=== PATIENT | female | born 1970 | race Caucasian/White ===

== ENCOUNTER → 2016-12-08 | Outpatient (CLI) | payer BC ==
[~2016-12-08] MED LIST: PRENTAB26 PO
== END | disposition home or self-care (01) ==
LOC: C.PAPS 16:15
PROVIDERS: ATTEND Obstetrics & Gynecology
DX: Z01.419 Encounter for gynecological examination (general) (routine) without abnormal findings (principal); Z30.09 Encounter for other general counseling and advice on contraception; R87.616 Satisfactory cervical smear but lacking transformation zone; Z87.42 Personal history of other diseases of the female genital tract

== ENCOUNTER → 2017-04-17 | Outpatient (CLI) | payer BC ==
--- NOTE | 2017-04-18 07:36 | MAMMOGRAPHY REPORT ---
BILATERAL DIGITAL DIAGNOSTIC MAMMOGRAM TOMOSYNTHESIS WITH CAD AND TARGETED BILATERAL ULTRASOUND: 04/17 CLINICAL HISTORY: 46-year-old woman presents with a palpable lump in the upper outer quadrant of the right breast which she has noted for 6-8 weeks. No skin erythema or thickening. No nipple discharge . No family history of breast cancer. Her provider also felt a possible additional lump in the 4:00 axis of the left breast, this was recollected by the patient as the 6:00 axis. TECHNIQUE: Bilateral CC and MLO 2-D and tomosynthesis images and a 2-D and tomosynthesis right XCCL v iew was obtained. Current study was also evaluated with a Computer Aided Detection (CAD) system. COMPARISON: Comparison is made to exams dated: 03/24/2016 mammogram, 02/03/2015 mammogram, 07/22/2014 mammogram, 07/22/2014 ultrasound, 12/31/2013 ultrasound, and 12/31/2013 mammogram - [facility]. BREAST COMPOSITION: There are scattered areas of fibroglandular density in both breasts. FINDINGS: A triangular palpable marker overlies the upper outer posterior right breast, denoting the lump pointed out by the patient, and another triangular palpable marker was placed in the 6:00 outreach librarian ior left breast, in the area the patient reported her provider felt a lump. In the area of concern i n the right breast, there is an irregular and spiculated mass with associated architectural distortio n measuring 19 x 18 x 16 mm. This is suspicious and further evaluation with ultrasound was performed . Also in the right breast, there is an 11 mm focal asymmetry in the upper outer middle to posterior breast that has been present on prior mammograms dating back to 2013 but has somewhat angular versus distorted borders on the axial CC L tomosynthesis images. Further evaluation with ultrasound was al so performed. No other obvious mass, asymmetry or suspicious calcifications are seen in the right br east. There is a subtle focal asymmetry in the 12:00 posterior left breast that is increasingly conspicuous comparing to prior mammograms. No obvious associated architectural distortion or calcification. No other suspicious masses, calcifications, asymmetries or areas of distortion are seen in the left scottie ast, with particular attention to the area of concern identified by the patient's provider. Targeted ultrasound was performed in the area of palpable lump pointed out by the patient, within the 9:30 right breast, 11 cm from the nipple. In the area of concern, there is an ill-defined spiculate d, tolerated in white hypoechoic shadowing mass measuring approximately 14.3 x 15.8 x 11.5 mm, with i ncreased vascularity. This is suspicious for malignancy and definitive characterization with an ultr asound-guided core biopsy is recommended. Then additional scanning was performed in the right axilla which demonstrates a lymph node with heterogeneous and undulating cortex. Cortical thickness is wit hin the range of normal at 2.9 mm, but given the heterogeneity this is indeterminate and an ultrasoun d-guided core biopsy is recommended. This lymph node measures 2.6 cm in length. Then additional sca nning performed throughout the remainder of the right upper outer quadrant fails to demonstrate any o ther suspicious solid or cystic mass or a sonographic correlate for the focal asymmetry seen in the l ateral breast mammographically. Targeted ultrasound was performed in the 11:00, 12:00 and 1:00 axes of the left breast to assess for the focal mammographic asymmetry sonographically normal tissue is seen without a suspicious solid or cystic mass. Given the contralateral breast findings and numerous asymmetries was working up, I inad vertently forgot to ultrasound the area of palpable concern in the left breast identified by the natalie ent's provider. Although there is no suspicious mammographic abnormality in the area of concern, I w ill perform targeted ultrasound in this area at the time of the ultrasound-guided core biopsy in the right breast, as the patient has scheduled her biopsy for tomorrow. IMPRESSION: ACR BI-RADS CATEGORY 5: HIGHLY SUGGESTIVE OF MALIGNANCY, TARGETED ULTRASOUND ACR BI-RADS CATEGORY 5: HIGHLY SUGGESTIVE OF MALIGNANCY 1. Ultrasound-guided core biopsy is recommended for a suspicious spiculated 19 mm mass in the 9:30 t o 10:00 posterior right breast. 2. Ultrasound-guided core biopsy is recommended for a lymph node in the right axilla with heterogene ous and undulating cortex, to exclude the possibility of metastatic disease. 3. At the time of right breast biopsy, targeted ultrasound should be performed in the 4:00 through 6 :00 axes of the left breast, in the area of palpable concern identified by the patient's provider. 4. Increasingly conspicuous focal asymmetries in the upper outer middle to posterior aspect of each breast, without suspicious sonographic correlate identified. These findings may represent benign tis rosario, but will issue further follow-up recommendations once pathology results from the right breast bi opsy are available, as a breast MRI may be needed. These results and recommendations were discussed with the patient at the time of the exam. She kassy reza scheduled the right breast and axillary biopsy prior to leaving our department, for 04/18/2017 . Approximately 10% of breast cancers are not detected with mammography. A negative mammographic report should not delay biopsy if a clinically suggestive mass is present. Gloria Ware M.D. ay/:04/17/2017 15:03:12 Test Engineer Nuclear Equipment: Chantelle Moreno, [facility] letter sent: Abnormal 4/5 BI-RADS Code: ACR BI-RADS Category 5: Highly Suggestive Of Malignancy Ultrasound BI-RADS: ACR BI-RAD S Category 5: Highly Suggestive Of Malignancy
== END | disposition home or self-care (01) ==
LOC: C.MAMM 13:03
PROVIDERS: ATTEND Obstetrics & Gynecology
DX: N63.10 Unspecified lump in the right breast, unspecified quadrant (principal); N63.20 Unspecified lump in the left breast, unspecified quadrant; R59.0 Localized enlarged lymph nodes; N64.9 Disorder of breast, unspecified

== ENCOUNTER → 2017-04-18 | Outpatient (CLI) | payer BC ==
--- NOTE | 2017-04-18 15:30 | Discharge Instructions ---
Discharge Instructions Procedure Procedure Date: Apr 18, 2017. Reason for visit: Right Mass/Axillary Node. Discharge Discharge Date: Apr 18, 2017. Discharge Diagnosis: post right breast mass and axillary lymph node biopsy Instructions Activity Recommendations: Additional Limitations (see below) Return to School/Work: no limitations Recommended Home Diet: No Limitations Provider Instructions: ACTIVITY RECOMMENDATIONS: * No lifting, pushing, pulling or exercising the affected side for three days. RETURN TO SCHOOL/WORK: * You may return to work/school after the procedure, but do not perform any strenuous activities for 24 to 48 hours. MEDICATIONS: * Tylenol (two 325 mg) every four to six hours if needed for mild pain (if not allergic to Tylenol). DIET: * Resume previous diet. SPECIAL CARE INSTRUCTIONS: * Keep biopsy site dry for 24 hours. May shower after 24 hours, but do not soak (bathe) incision. * May remove Tegaderm (plastic patch) tomorrow AFTER showering. * Leave the steri-strips on for one week. Allow the steri-strips to fall off by themselves. If not off after one week, you may remove them. You may place a Bandaid crosswise over the strips, if desired. * Apply ice 10 minutes on and 10 minutes off as needed. * Wear a bra at bedtime to sleep more comfortably for 2-3 days. * Your referring physician should have the results after approximately 5 to 7 business days. * Call for unusual bleeding, fever, drainage, etc or if you have any questions call [phone] during normal business hours or after hours call Dr Ware, . FOLLOW UP VISIT: Follow-up with Referring Physician as scheduled. Allergies Coded Allergies: Penicillins (Verified Allergy, Unknown, RASH, 06/18/09) Sulfa Drugs (Verified Allergy, Unknown, SWELLING, 06/18/09) Beatriz Michelle Recommendations: Call your doctor if: * Temperature above 101 degrees * Pain not relieved by pain medicine ordered * There is increased drainage or redness from any incision * You have any unanswered questions or concerns. Your Doctors Instructions noted above were prepared by provider Gloria Ware. Patient Signature Section: Patient Instructions Signature Page Angelica Jaramillo Patient (or Guardian) Signature/Date: I have read and understand the instructions given to me by my caregivers. Caregiver/RN/Doctor Signature/Date: The above-named patient and/or guardian has received patient instructions on this date. + Original Patient Signature Page (only) stays with chart. Please make copy for patient.
--- NOTE | 2017-04-19 07:53 | MAMMOGRAPHY REPORT ---
ULTRASOUND GUIDED BIOPSY RIGHT BREAST: 04/18/2017 CLINICAL HISTORY: Indeterminate prominent right axillary lymph node with heterogeneous undulating cor sherri. Patient presents for lymph node biopsy at the same time as biopsy of a suspicious right breast mass in the upper outer quadrant. Please refer to the report from right breast ultrasound guided core biopsy performed at the same time for full detail. IMPRESSION: ULTRASOUND GUIDED BIOPSY Please refer to the report from right breast ultrasound guided core biopsy performed at the same time for full detail. Gloria Ware M.D. ay/:04/18/2017 15:57:25 Attending Technologist: Chantelle GARDINER(Giovani)(M), [facility] Supervisor Wet Pour: Dr. Gloria Ware, [facility]
--- NOTE | 2017-04-19 07:53 | MAMMOGRAPHY REPORT ---
THIS REPORT HAS BEEN AMENDED. MULTIPLE ULTRASOUND GUIDED BIOPSIES RIGHT BREAST: 04/18/2017 CLINICAL HISTORY: 46-year-old woman presented with a palpable mass in the 9:30 posterior right breast , found to have a suspicious spiculated mass mammographically and on ultrasound, and also indetermina te right axillary lymph node. She presents for biopsy of the breast mass and lymph node. COMPARISON: Comparison is made to exams dated: 04/17/2017 ultrasound, 04/17/2017 mammogram, 03/24/2016 mammogram, 02/03/2015 mammogram, 07/22/2014 mammogram, and 12/31/2013 mammogram - [facility]. PATIENT CONSENT: The procedure, risks and benefits were discussed with the patient and informed conse nt was obtained both verbally and in writing. Specific risks to this procedure include: bleeding, in fection, puncture of adjacent structure, nontarget biopsy, sampling error, pain, metal allergy and me dication reaction. PROCEDURE DESCRIPTION: A time out was performed and the right breast and axillary lymph node were agr eed as the site of biopsy. The skin was prepped and draped in the usual sterile fashion. First, the spiculated palpable mass in the 9:30 right breast was chosen as the target for biopsy. Subcutaneous and intraparenchymal 1% buffered lidocaine, with and without epinephrine, was administered as local a nesthesia. A skin incision was made. Through the incision, 4 samples were taken with a 14 gauge Achi kathrine biopsy device. A ribbon shaped metallic marker was placed at the biopsy site. Hemostasis was achi eved after manual compression. The patient tolerated the procedure well and there was no immediate co mplication. Second, the lymph node with heterogeneous undulating cortex in the right axilla was identified and ta rgeted for biopsy. Additional 1% buffered lidocaine with and without epinephrine was administered. A small skin incision was made. Through the incision, 4 core biopsy samples were obtained with an 18 -gauge Quick-Core biopsy device. A ring-shaped metallic biopsy marker was placed within the lymph no de. All of the samples were sent expedited to the pathology department in an appropriately labeled contai ners. Postprocedure right CC, ML and MLO views were obtained. Both biopsy marker clips are identified on t he right MLO view. Neither are clearly seen on the CC or ML views. The ribbon-shaped clip aligns wi th the spiculated mass in question in the upper outer far posterior right breast, and the wing-shaped clip is seen within a prominent lymph node in the right axilla. No significant postbiopsy hematoma. IMPRESSION: ULTRASOUND GUIDED BIOPSY Status post ultrasound guided core biopsy of a suspicious pixilated palpable mass in the upper outer posterior right breast, and of an indeterminate right axillary lymph node. Biopsy marker clips were placed at each site. The patient will receive notification of the biopsy results from her referring physician. Gloria Ware M.D. ay/:04/18/2017 16:39:31 Attending Technologist: Harley Luo RT(R)(M), [facility] Jewelry Sales: Dr. Gloria Ware, [facility] AMENDMENT: 04/19/2017 Gloria Ware M.D. Pathology results from the ultrasound-guided core biopsy of a suspicious spiculated and palpable mass in the 9:30 right breast yielded invasive lobular carcinoma, [place] grade 1 of 3, estrogen and p rogesterone receptor positive, HER-2/hema negative. Pathology results from the lymph node biopsy in the right axilla yielded a benign-appearing lymph nod e and soft tissue present. The pathology results are concordant with the imaging appearance. Given the presence of invasive lob ular carcinoma, a breast MRI is recommended prior to definitive treatment. In particular, there is a 7 mm focal asymmetry in the upper outer middle one third of the right breast, 5.2 cm anterior to the biopsy proven carcinoma on the initial MLO view. This remain suspicious and could represent additio nal disease even though it was not identified on ultrasound. Additionally with like to assess for an y enhancement regarding the focal asymmetry in the left upper outer quadrant as well.
--- NOTE | 2017-04-19 07:54 | MAMMOGRAPHY REPORT ---
UNILATERAL RIGHT DIGITAL DIAGNOSTIC MAMMOGRAM TOMOSYNTHESIS: 04/18/2017 CLINICAL HISTORY: 46-year-old woman presents for biopsy of a suspicious spiculated and palpable mass in the upper outer posterior right breast, and biopsy of a prominent lymph node in the right axilla w ith undulating heterogeneous cortex. Please refer to the report from right breast ultrasound guided core biopsy performed at the same time for full detail. IMPRESSION: POST PROCEDURE IMAGING FOR MARKER PLACEMENT Please refer to the report from right breast ultrasound guided core biopsy performed at the same time for full detail. Approximately 10% of breast cancers are not detected with mammography. A negative mammographic report should not delay biopsy if a clinically suggestive mass is present. Gloria Ware M.D. ay/:04/18/2017 15:56:21 Labeling Machine Operator: Chantelle GARDINER(Giovani)(M), [facility] BI-RADS Code: Post Procedure Imaging For Marker Placement
== END | disposition home or self-care (01) ==
LOC: C.MAMM 14:01
PROVIDERS: ATTEND Obstetrics & Gynecology
DX: C50.911 Malignant neoplasm of unspecified site of right female breast (principal); R59.9 Enlarged lymph nodes, unspecified

== ENCOUNTER → 2017-05-09 | Outpatient (CLI) | payer BC ==
[~2017-05-09] MED LIST changes: +ANAS1TAB7 PO; +CEPH500C2 PO; +GADAVIST IV PRN; +GOSE3.6I INJ; +HYDR-5688 PO; +HYDR12.56 PO; +LISI-461 PO; +LISI20TA55 PO; +OXYC-57 PO
--- NOTE | 2017-05-10 13:47 | MAMMOGRAPHY REPORT ---
BREAST MRI OF BOTH BREASTS : 05/09/2017 CLINICAL HISTORY: 46-year-old woman with recently diagnosed invasive lobular carcinoma in the 9:30 po sterior right breast. She presents to assess extent of disease prior to treatment, and also evaluate the focal asymmetries identified in each upper outer middle to posterior breast seen on diagnostic m ammograms, without sonographic correlate. Also assess a previously palpable area in the 4:00 to 6:00 left breast, for which no new suspicious mammographic abnormality was identified. COMPARISON: Comparison is made to exams dated: 04/18/2017 mammogram, 04/18/2017 ultrasound biopsy, 04/17/2017 ultrasound, 04/17/2017 mammogram, 03/24/2016 mammogram, and 02/03/2015 mammogram - [facility]. TECHNIQUE: Using a 1.5 Mitali magnet and dedicated breast coil, multisequence axial images were obtain ed through the breasts. After uneventful IV administration of 10 mL of Gadavist, dynamic multiphase contrast-enhanced axial images, and sagittal postcontrast were obtained. Temporal subtraction axial images and 3-D MIP images are provided. Everything was then reviewed on a 3-D workstation, [employer]. FINDINGS: Right breast: There is minimal background parenchymal enhancement of the right breast. There is a co mbination of both mass and non-mass enhancement throughout the right upper outer quadrant. The domin ant, heterogeneously enhancing, spiculated mass with associated biopsy marker clip is located in the 9:30 far posterior right breast, measuring approximately 21.3 x 16.6 x 29.6 mm. There are mixed asso ciated persistent, plateau and washout kinetics. Small enhancing spicules appear to extend to the ad jacent pectoralis muscle but there is no definitive pectoralis muscle enhancement to suggest invasion . The next largest masslike enhancement in the right breast is located in the retroareolar posterior breast, measuring 6.5 x 10.5 x 7.0 mm, with predominantly associated plateau kinetics. This mass bland s angular and irregular borders and is suspicious for additional invasive carcinoma. It corresponds to the focal asymmetry seen mammographically in the right upper outer quadrant and is located at leas t 5 cm anterior and medial to the biopsy-proven carcinoma in the far posterior 9:30 right breast. A third prominent area of non-mass enhancement is identified in the 9:00 middle one third of the right breast measuring 4.2 x 8.3 x 5.8 mm, with associated persistent kinetics. This area of enhancement i s located 5.2 cm anterior to the dominant biopsy-proven carcinoma in the far posterior 9:30 right scottie ast. Subtle regional non-mass enhancement is seen throughout the remainder of the right upper outer quadrant from the approximate 9:00 through 12:00 middle one third and posterior one third of the beat[address] and surrounding the above described largest areas of mass enhancement. These findings are concern ing for multifocal disease and definitive characterization with tissue sampling is recommended of bot h the angular 10.5 mm mass in the retroareolar posterior breast, and the focal area of non-mass enhan cement measuring 8.3 mm in the 9:00 middle one third of the right breast. No other definite areas of mass or non-mass enhancement are seen throughout the remainder of the right upper inner, lower outer or lower inner quadrants. There is no evidence of focal skin thickening or nipple retraction of the right breast. Left breast: There is minimal background parenchymal enhancement of the left breast. There is a mild ly enhancing 4.4 x 7.5 x 14.5 mm focal asymmetry in the 12:00 posterior left breast, correlating with a focal asymmetry seen mammographically, for which no sonographic correlate was initially identified . There is associated mild persistent kinetics. Given that this is the only conspicuous area of enh ancement within the left breast, and the increasingly conspicuous nature seen when comparing to prior mammograms, definitive characterization with tissue sampling is recommended. No focal skin thickeni ng or nipple retraction of the left breast. Bilateral axillary lymph nodes demonstrate minimal homogeneous cortical thickening. Susceptibility a rtifact from a biopsy marker clip is seen within the most prominent right axillary lymph node. It sh ould be noted that this did not yield metastatic carcinoma at pathology. IMPRESSION: ACR BI-RADS CATEGORY 4: SUSPICIOUS 1. Right breast findings concerning for multifocal disease throughout the upper outer quadrant. The re are areas of both mass and regional non-mass enhancement within the middle and posterior one third of the right upper outer breast. The dominant spiculated mass in the 9:30 far posterior right breas t, representing the recent biopsy proven carcinoma, measures approximately 29.6 mm and there is no de finite evidence of pectoralis invasion. Other concerning areas in the middle/posterior retroareolar and 9:00 middle one third of the right breast could represent additional disease and definitive annamaria cterization with targeted second look ultrasound with possible ultrasound-guided core biopsy as well as stereotactic tomosynthesis biopsy are recommended. If the area of non-mass enhancement in the 9:0 0 right breast is not visualized on ultrasound and MRI guided biopsy may be needed. 2. Subtle focal asymmetry with mild associated enhancement in the 12:00 middle to posterior left scottie ast, for which stereotactic tomosynthesis guided biopsy versus MRI guided biopsy is recommended for d efinitive characterization. 3. Mildly prominent yet symmetric bilateral axillary lymph nodes, one of which was previously sample d in the right axilla and yielded no evidence of metastatic disease at needle biopsy. The patient will be called to schedule an appointment. Gloria Ware M.D. ay/:05/09/2017 21:29:25 Informaticist: wide area network administrator, [facility] letter sent: Abnormal 4/5 BI-RADS Code: ACR BI-RADS Category 4: Suspicious
== END | disposition home or self-care (01) ==
LOC: C.MRI 15:09
PROVIDERS: ATTEND Surgery
DX: C50.411 Malignant neoplasm of upper-outer quadrant of right female breast (principal); N64.89 Other specified disorders of breast; R92.8 Other abnormal and inconclusive findings on diagnostic imaging of breast; R59.0 Localized enlarged lymph nodes

== ENCOUNTER → 2017-05-15 | Outpatient (CLI) | payer BC ==
[~2017-05-15] MED LIST changes: -GADAVIST IV PRN; -PRENTAB26 PO
--- NOTE | 2017-05-16 15:01 | MAMMOGRAPHY REPORT ---
ULTRASOUND OF BOTH BREASTS: 05/15/2017 CLINICAL HISTORY: 46-year-old woman with biopsy proven lobular carcinoma in the 9:30 posterior right breast. She presents for second look ultrasound to assess for other enhancing masses in the right br east and a focal asymmetry in the left breast. COMPARISON: Comparison is made to exams dated: 04/18/2017 mammogram, 04/18/2017 ultrasound biopsy, 04/17/2017 ultrasound, 04/17/2017 mammogram, 03/24/2016 mammogram, and 02/03/2015 mammogram - [facility]. FINDINGS: Real-time high-resolution ultrasound was performed in both breasts assess for the other ar eas of masslike and non-mass enhancement seen on recent breast MRI. In the upper outer quadrant and 11:00 left breast, sonographically normal tissue is seen without a discrete solid or cystic mass. No sonographic correlate for the subtle focal asymmetry seen on recent MRI. In the right upper outer quadrant in the 9:00 axis, 5 cm from the nipple, there is a small shadowing area measuring 3.6 x 4.1 x 2.8 mm. Another possible very subtle hypoechoic area versus architectural distortion is identified in the 10:00 right breast, 4 cm from the nipple, measuring 3.0 x 3.8 x 6.9 mm. There is no definite sonographic correlate for the 6 x 9 mm masslike enhancement in the retroare olar right breast seen on recent MRI for the other dominant masslike areas of enhancement. After further discussion regarding the MRI findings and concern for multifocal disease in the right b reast the patient was leaning towards bilateral mastectomies and therefore no biopsies were performed . IMPRESSION: Vague questionable areas of hypoechoic shadowing in the 9:00 and 10:00 axes of the right breast which may correspond to areas of non-mass enhancement seen on recent breast MRI. However, the dominant co ncerning masslike enhancement in the retroareolar right breast was not identified on targeted second look ultrasound, nor was any suspicious abnormality in the left breast. The patient is currently aguilar adam towards bilateral mastectomies and therefore no biopsies were performed today. Gloria Ware M.D. ay/:05/15/2017 14:14:27 Milk Receiver: Tamiko ESCALERA)(Carlos), [facility] BI-RADS Code: n/a
== END | disposition home or self-care (01) ==
LOC: C.MAMM 12:39
PROVIDERS: ATTEND Surgery
DX: R92.8 Other abnormal and inconclusive findings on diagnostic imaging of breast (principal)

== ENCOUNTER 2017-05-21 07:47 | Inpatient (IN) | payer BC ==
[2017-05-09 09:01] VITALS: BMI 39.0
--- NOTE | 2017-05-09 09:34 | PAT Medication Instructions ---
Service Date May 09, 2017. Current Home Medication List Lisinopril (Zestril), 10 MG PO QPM Medication Instructions For Your Scheduled Surgery - Hold the following medications the night before surgery: Lisinopril (Zestril), 10 MG PO QPM *nothing to eat or drink after midnight* If you have any questions please call us at [phone] or [phone] or [phone]
[2017-05-09 10:04] LABS: BASO % 0.2 %; BASO ABS # 0.02 K/uL (0-0.2); EOS % 0.7 %; EOS ABS # 0.09 K/uL (0-0.5); HEMATOCRIT 43.7 % (37-47); HEMOGLOBIN 14.4 g/dL (12.0-16.0); IG# 0.04 K/uL (0.00-0.02); LYMPH % 15.7 %; LYMPH ABS # 2.03 K/uL (1.2-3.4); MEAN CELL VOLUME 84.4 fL (80-100); MEAN CORPUSCULAR HEMOGLOBIN 27.8 pg (25-34); MEAN PLATELET VOLUME 12.5 fL (7.4-10.4); MONO % 5.1 %; MONO ABS # 0.66 K/uL (0.11-0.59); NEUT ABS # 10.09 K/uL (1.4-6.5); PLATELET COUNT 218 K/uL (130-400); RED CELL DISTRIBUTION WIDTH CV 13.9 % (11.5-14.5); RED CELL DISTRIBUTION WIDTH SD 42.9 fL (36.4-46.3); WHITE BLOOD COUNT 12.93 K/uL (4.8-10.8)
[2017-05-09 10:12] LABS: CREATININE 0.76 mg/dl (0.60-1.20)
[~2017-05-21] VITALS: Ht 160 cm; Wt 100.0 kg
[2017-05-21] VITALS (8 sets, daily range): BP systolic 133–204; BP diastolic 78–96; PULSE 90–116; TEMP 36.2–37.1; O2SAT 92–98; Ht 160 cm; Wt 100.0 kg
[~2017-05-21 07:47] MED LIST changes: -ANAS1TAB7 PO; -CEPH500C2 PO; +CLINDAMYCIN IV 900 MG in DEXTROSE 5% 50ML 44 ML IV SCH; -GOSE3.6I INJ; -HYDR-5688 PO; -HYDR12.56 PO; +LACTATED RINGER'S 1000ML 1,000 ML IV SCH; -LISI20TA55 PO; -OXYC-57 PO
[2017-05-21] MEDS ORDERED: SCOPOLAMINE 1.5 MG TDSY TD ONE ×2 (08:49→09:00)
[2017-05-21] MEDS ORDERED: HYDROmorphone INJ 1 MG/ML SYR IV PRN (09:00)
[2017-05-21] MEDS ORDERED: FENTANYL CITRATE INJ 50 MCG/1 ML 2 ML VIAL IV PRN (09:00)
[2017-05-21] MEDS ORDERED: EpHEDrine SULFATE INJ 50 MG/ML AMP IV PRN (09:00)
[2017-05-21] MEDS ORDERED: ONDANSETRON INJ 2 MG/ML 2 ML VIAL IV PRN (09:00)
[2017-05-21] MEDS ORDERED: ATROPINE SULFATE 0.1 MG/ML 5ML SYR IV PRN (09:00)
[2017-05-21] MEDS ORDERED: MIDAZOLAM HCL 1 MG/ML 2ML VIAL ONE (09:02)
[2017-05-21] MEDS ORDERED: FENTANYL CITRATE INJ 50 MCG/1 ML 2 ML VIAL ONE ×4 (09:02→10:41)
--- NOTE | 2017-05-21 09:14 | DIAGNOSTIC IMAGING REPORT ---
LYMPH SENTINEL NODE ID CLINICAL HISTORY: BREAST CA breast carcinoma. TECHNIQUE: Sequential injections of a total of 0.491 mCi technetium 99m lymphocele to the left breast. Sequential periareolar administration of 0.498 mCi technetium 99m lymphocele right breast. COMPARISON STUDY: None FINDINGS: Successful periareolar injections premastectomy IMPRESSION: Successful periareolar injections premastectomy bilaterally The above report was generated using voice recognition software. It may contain grammatical, syntax or spelling errors. Electronically signed by: Yvon Estrada M.D. 05/21/2017 9:13 AM Dictated Date/Time: 05/21/2017 9:10 AM
[2017-05-21] MEDS ORDERED: ISOSULFAN BLUE 10 MG/ML VIAL 5 ML ONE (09:45)
[2017-05-21] MEDS ORDERED: BUPIVACAINE 0.5 % 5 MG/1 ML MPF 30ML VIAL ONE (09:46)
--- NOTE | 2017-05-21 09:47 | History & Physical Bridge Note ---
H&P Re-Evaluation Bridge Note: I have examined the patient, reviewed the History & Physical and in the interval since the performance of the History & Physical I have noted the following changes of clinical significance: No changes noted
[2017-05-21] MEDS ORDERED: HYDROmorphone INJ 2 MG/ML SYR/VIAL ONE (10:12)
[2017-05-21] MEDS ORDERED: NEOSTIGMINE METHYLSULFATE 5 MG/5 ML SYR ONE (10:27)
[2017-05-21] MEDS ORDERED: GLYCOPYRROLATE INJ 0.2 MG/ML VIAL ONE (10:27)
[2017-05-21] MEDS ORDERED: PROPOFOL IV EMULSION 10 MG/ML 20 ML VIAL IV ONE (10:27)
[2017-05-21] MEDS ORDERED: ONDANSETRON INJ 2 MG/ML 2 ML VIAL ONE (10:27)
[2017-05-21] MEDS ORDERED: ROCURONIUM BROMIDE 10 MG/ML 5 ML VIAL IV ONE (10:27)
[2017-05-21] MEDS ORDERED: LIDOCAINE HCL 2% 2 ML VIAL (20MG/ML) ONE (10:27)
[2017-05-21] MEDS ORDERED: DEXAMETHASONE SOD INJ 4 MG/ML VIAL ONE (10:27)
[2017-05-21] MEDS ORDERED: ACETAMINOPHEN 1000 MG/100 ML IV IV ONE (10:36)
[2017-05-21] MEDS ORDERED: CEFAZOLIN SOD 1 GM VIAL ONE (11:00)
[2017-05-21] MEDS ORDERED: ESMOLOL HCL 10 MG/ML 10 ML VIAL ONE (11:06)
[2017-05-21] MEDS ORDERED: METOPROLOL TARTRATE 1 MG/ML VIAL ONE ×2 (11:06→13:05)
--- NOTE | 2017-05-21 12:43 | [facility] Operative Report ---
Operative Report Operative Date May 21, 2017. Pre-Operative Diagnosis history breast cancer Post-Operative Diagnosis Right Breast Cancer Procedure(s) Performed Bilateral Breast Mastectomy with Bilateral [place] Lymph Node Biopsy Surgeon Dr. Ivan Washburn Computer Information Systems Instructor Surgeon(s) Rupert Nugent PA-C Estimated Blood Loss 20ml Findings sentinel lymph nodes negative Specimens Permanent Solution: C.) Right Breast - long silk lateral Drains bilateral #15 Rd JPs to wounds Anesthesia Gen Complication(s) None Disposition Recovery Room / PACU I attest to the content of the Intraoperative Record and any orders documented therein. Any exceptions are noted below.
[2017-05-21] MEDS ORDERED: PROMETHAZINE HCL INJ 25 MG in SODIUM CHLORIDE 0.9% 50ML 50 ML IV PRN (13:00)
[2017-05-21] MEDS ORDERED: MoRPHine SULFATE 4 MG/ML 1 ML CARP\\VIAL IV PRN (13:00)
[2017-05-21] MEDS ORDERED: NURSING VERBAL MED ORDER ONE ×2 (13:10→13:25)
--- NOTE | 2017-05-21 13:19 | OPERATIVE REPORT ---
DATE OF OPERATION: 05/21/2017 NAME OF OPERATION: Bilateral mastectomy with bilateral sentinel lymph node biopsy. PREOPERATIVE DIAGNOSIS: Right breast cancer. POSTOPERATIVE DIAGNOSIS: Same. STAFF SURGEON: Dr. Ivan Washburn. VISCERA WASHER: Rupert Nugent PA-C ANESTHESIA: General. DESCRIPTION OF PROCEDURE: The patient was brought into the operating room and placed on the operating table in the supine position. Her arms were extended on an arm board. She had undergone a breast injection for sentinel lymph node biopsy in radiology prior to coming to the OR. At this point, her chest was prepped and draped in the usual fashion. The left side was approached first. She had an evidence of tumor in that breast. Incision was made in the left axilla, carrying dissection down, identifying the sentinel lymph node and sending it for frozen section. During the frozen section, we did perform a left mastectomy by making elliptical incisions around the nipple areolar complex and then constructing superior and inferior skin and subcutaneous flaps by dissecting the breast tissue away from the subcutaneous tissue. She had relatively good planes in this area. The breast was then removed from the pectoralis major muscle, removing the fascia and then it was marked with a long silk suture lateral. At this point, the sentinel lymph node came back negative. The breast was sent for routine pathology. I also found additional lymph nodes that were sent for permanent section. It was not a sentinel node. At this point, the site was irrigated and then a 15 round Lex-Harvey drain placed into the wound and secured to the skin using 3-0 nylon suture. Subcutaneous tissue was then reapproximated using interrupted 3-0 Vicryl suture. The tissue was very loose and there was no significant tension. The skin was then reapproximated using subcuticular 4-0 Monocryl and Steri-Strips. This site was covered and then the right side approached. We did use separate instruments and changed our gloves. The right side was where the tumor was found in the right breast. Incision was made in the right axilla, carrying dissection down, identifying the sentinel lymph node, which was relatively large. It was sent for frozen section. The frozen section was negative. During the frozen section, we did perform mastectomy by making an elliptical incision around the nipple areolar complex and then dissecting the breast tissue away from the subcutaneous tissue, constructing superior and inferior chest wall flaps. The wound was then irrigated and then a 15 round Lex-Harvey drain placed into the chest wound and axilla and secured to the skin using 3-0 nylon suture. Subcutaneous tissue was reapproximated using interrupted 3-0 Vicryl suture and then the skin reapproximated using subcuticular 4-0 Monocryl and Steri-Strips. The drains were placed to suction bulbs. Dressing applied and Ashkan wrap applied and the patient transferred to recovery room in stable condition. As a note, my procurement assistant helped with prepping, draping, retraction during the operation, and closure of the wounds bilaterally. I attest to the content of the Intraoperative Record and any orders documented therein. Any exception s are noted below.
[2017-05-21] MEDS ORDERED: LABETALOL HCL IV 5 MG/ML 20ML IV ONE (13:23)
--- NOTE | 2017-05-21 14:12 | Anesthesiology Progress Note ---
Anesthesia Post Op Note Date & Time May 21, 2017 at 14:11 Vital Signs Pain Intensity: 0 Vital Signs Past 12 Hours Date Time Temp Pulse Resp B/P (MAP) Pulse Ox O2 Delivery O2 Flow Rate FiO2 05/21/17 14:00 86 16 170/88 98 Nasal Cannula 3 05/21/17 13:45 90 16 172/87 98 Nasal Cannula 3 05/21/17 13:40 85 16 171/91 98 Nasal Cannula 3 05/21/17 13:35 36.3 96 16 170/86 98 Nasal Cannula 3 05/21/17 13:30 96 16 158/83 98 Nasal Cannula 3 05/21/17 13:25 101 16 178/99 98 Nasal Cannula 3 05/21/17 13:15 90 16 172/92 99 Oxymask 3 05/21/17 13:13 104 174/89 05/21/17 13:05 104 16 174/89 99 Oxymask 5 05/21/17 12:55 36.2 101 16 168/88 99 Oxymask 10 05/21/17 08:50 36.9 97 18 204/94 (130) 98 Room Air Notes Mental Status: alert / awake / arousable, participated in evaluation Pt Amnestic to Procedure: Yes Nausea / Vomiting: adequately controlled Pain: adequately controlled Airway Patency, RR, SpO2: stable & adequate BP & HR: stable & adequate Hydration State: stable & adequate Anesthetic Complications: no major complications apparent
[2017-05-21] MEDS ORDERED: PROMETHAZINE HCL INJ 12.5 MG in SODIUM CHLORIDE 0.9% 50ML 50 ML IV PRN (15:00)
[2017-05-21] MEDS ORDERED: LACTATED RINGER'S 1000ML 1,000 ML IV SCH (15:00)
[2017-05-21] MEDS: ONDANSETRON INJ 2 MG/ML 2 ML VIAL IV PRN ×2 (15:04→21:04)
[2017-05-21] MEDS: MoRPHine SULFATE 2 MG/ML CARP IV PRN ×2 (15:05→20:54)
[2017-05-21] MEDS ORDERED: HydrALAZINE HCL 20 MG/ML VIAL IV. STA (15:55)
[2017-05-21] MEDS: CHECK SCOPOLAMINE PATCH PLACEMENT SCH ×2 (16:11→23:38)
[2017-05-21] MEDS ORDERED: INFLUENZA ADMINISTRATION CHARGE ONE (16:30)
[2017-05-21] MEDS ORDERED: INFLUENZA VIRUS QUAD VACCINE 0.5 ML SYR IM. ONE (16:30)
[2017-05-21] MEDS ORDERED: HydrALAZINE HCL 20 MG/ML VIAL IV. PRN (17:15)
[2017-05-21] MEDS ORDERED: LISI20TA55 PO (17:15)
--- NOTE | 2017-05-21 17:19 | Medical Consult ---
Consultation Date of Consultation: May 21, 2017. Attending Physician: Ivan Washburn M.D. Reason for Consultation: Medical management History of Present Illness This is a 46 y/o female with a history of right breast invasive lobular carcinoma grade 1/3 and HTN who presents s/p bilateral mastectomy with bilateral sentinel lymph node biopsy with Dr. Washburn on 05/21 for medical management. The patient reports some soreness in her chest with movement but denies any pain with rest. She is eating and urinating without difficulty. She has not yet passed gas or had a bowel movement postoperatively. The patient denies fevers, chills, sweats, chest pain, palpitations, claudication, cough, wheezing, shortness of breath, nausea, vomiting, abdominal pain, dysuria , hematuria, urinary retention, paralysis, weakness, numbness and tingling. Past Medical/Surgical History Right breast invasive lobular carcinoma HTN Family History Colon cancer Diabetes mellitus Hypertension Social History Smoking Status: Never Smoker Smokeless Tobacco Use: No Alcohol Use: none Drug Use: none Marital Status: Housing Status: lives with family ( and 3 children) Occupation Status: employed (teacher) Allergies Coded Allergies: Sulfa Antibiotics (Verified Allergy, Intermediate, SWELLING, 05/22/17) Penicillins (Verified Allergy, Unknown, RASH, 05/21/17) Current Inpatient Medications Current Inpatient Medications Medications (Trade) Dose Ordered Sig/Diane Route Start Time Stop Time Status Last Admin Dose Admin Lactated Ringer's 1,000 ml @ 15 mls/hr Q24H IV 05/21/17 06:00 05/22/17 05:59 05/21/17 09:13 15 MLS/HR Clindamycin Phosphate 900 mg/ Dextrose 50 ml @ 100 mls/hr PREOP@0600 IV 05/21/17 06:00 05/22/17 05:59 05/21/17 09:52 100 MLS/HR Miscellaneous (Remove Transderm-Scop Patch) 1 ea Q48H N/A 05/24/17 09:00 05/24/17 09:01 Miscellaneous Information (Check Scopolamine Patch Placement) 1 ea QS N/A 05/21/17 16:00 05/24/17 09:00 05/21/17 16:11 1 EA Lisinopril (Zestril Tab) 10 mg QPM PO 05/21/17 21:00 06/20/17 20:59 Clindamycin Phosphate 900 mg/ Dextrose 106 ml @ 100 mls/hr Q8H IV 05/21/17 18:00 05/22/17 17:59 Lactated Ringer's 1,000 ml @ 50 mls/hr Q20H IV 05/21/17 15:00 06/20/17 14:59 Morphine Sulfate (MoRPHine SULFATE INJ) 2 mg Q4H PRN IV 05/21/17 13:00 06/04/17 12:59 05/21/17 15:05 2 MG Morphine Sulfate (MoRPHine SULFATE INJ) 4 mg Q4H PRN IV 05/21/17 13:00 06/04/17 12:59 Promethazine HCl 25 mg/Sodium Chloride 51 ml @ 204 mls/hr Q6H PRN IV 05/21/17 13:00 06/20/17 12:59 Ondansetron HCl (Zofran Inj) 4 mg Q6H PRN IV 05/21/17 13:00 06/20/17 12:59 05/21/17 15:04 4 MG Promethazine HCl 12.5 mg/Sodium Chloride 50.5 ml @ 204 mls/hr Q6H PRN IV 05/21/17 15:00 06/20/17 14:59 Review of Systems Constitutional: No fever, No chills, No sweats Eyes: No worsening of vision, No eye pain, No diplopia ENT: No hearing loss, No nasal symptoms, No trouble swallowing Respiratory: No cough, No wheezing, No shortness of breath Cardiovascular: No chest pain, No claudication, No palpitations Abdomen: No pain, No nausea, No vomiting Musculoskeletal: No joint pain, No muscle pain, No swelling Genitourinary - Female: No dysuria, No urinary retention, No hematuria Neurologic: No paralysis, No weakness, No numbness/tingling Integumentary: No rash, No itch, No color change Physical Exam Date Time Temp Pulse Resp B/P (MAP) Pulse Ox O2 Delivery O2 Flow Rate FiO2 05/21/17 16:15 37.1 97 16 160/84 (109) 95 Room Air 05/21/17 15:17 36.9 96 18 170/96 (120) 95 Room Air 05/21/17 15:10 Room Air 05/21/17 14:48 98 16 167/91 (116) 98 2.0 05/21/17 14:15 37.0 90 16 155/84 (107) 98 Nasal Cannula 2.0 05/21/17 14:15 98 Nasal Cannula 2.0 05/21/17 14:15 98 Nasal Cannula 2.0 05/21/17 14:00 86 16 170/88 98 Nasal Cannula 3 05/21/17 13:45 90 16 172/87 98 Nasal Cannula 3 05/21/17 13:40 85 16 171/91 98 Nasal Cannula 3 05/21/17 13:35 36.3 96 16 170/86 98 Nasal Cannula 3 05/21/17 13:30 96 16 158/83 98 Nasal Cannula 3 05/21/17 13:25 101 16 178/99 98 Nasal Cannula 3 05/21/17 13:15 90 16 172/92 99 Oxymask 3 05/21/17 13:13 104 174/89 05/21/17 13:05 104 16 174/89 99 Oxymask 5 05/21/17 12:55 36.2 101 16 168/88 99 Oxymask 10 05/21/17 08:50 36.9 97 18 204/94 (130) 98 Room Air General appearance: +Obese. Well-developed, well-nourished, no apparent distress Head: Normocephalic, atraumatic Eyes: Normal inspection, PERRL, EOMI ENT: Normal ENT inspection, hearing grossly normal, pharynx normal Neck: Supple, no JVD, trachea midline Respiratory/Chest: +Chest wrapped in gene bandages. Bilateral drains with blood. Tender. Lungs clear to auscultation, normal breath sounds, no respiratory distress Cardiovascular: Regular rate & rhythm, no gallop, no murmur Abdomen/GI: Normal bowel sounds, non-tender, soft Extremities/Musculoskeletal: Normal inspection, no calf tenderness, no pedal edema Neurological/Psych: Alert, normal mood/affect, oriented x 3 Skin: Normal color, warm/dry, no rash Laboratory Results Last 24 Hours Test 05/21/17 17:08 Assessment & Plan 46 y/o female with a history of right breast invasive lobular carcinoma grade 1/ 3 and HTN who presents s/p bilateral mastectomy with bilateral sentinel lymph node biopsy with Dr. Washburn on 05/21 for medical management. S/p bilateral mastectomy, right breast cancer--POD #0 -Pain management, DVT prophylaxis as per primary team -AVSS, pain manageable HTN--pt had been very hypertensive on arrival, improving -Hold lisinopril/HCTZ until renal function checked/stable -Cover with hydralazine 10 mg IV q6h prn SBP >180 Thank you for this consultation. We will continue to follow. Supervising Note Dr. Velez I performed a history and physical examination on the patient. I reviewed above note and agree with it. I discussed plan with APC and patient. During my face to face encounter with the patient, I answered all of the patient's questions.
[2017-05-21 17:56] LABS: HEMATOCRIT 40.1 % (37-47); HEMOGLOBIN 13.3 g/dL (12.0-16.0); MEAN CELL VOLUME 84.2 fL (80-100); MEAN CORPUSCULAR HEMOGLOBIN 27.9 pg (25-34); MEAN CORPUSCULAR HGB CONC 33.2 g/dl (32-36); MEAN PLATELET VOLUME 12.7 fL (7.4-10.4); PLATELET COUNT 218 K/uL (130-400); RED CELL DISTRIBUTION WIDTH CV 13.7 % (11.5-14.5); RED CELL DISTRIBUTION WIDTH SD 42.1 fL (36.4-46.3)
[2017-05-21 18:11] LABS: CALCIUM 8.7 mg/dl (8.5-10.1); CREATININE 1.28 mg/dl (0.60-1.20); POTASSIUM 3.3 mmol/L (3.5-5.1)
[2017-05-21] MEDS: CLINDAMYCIN IV 900 MG in DEXTROSE 5% 100ML 100 ML IV SCH (18:13)
[2017-05-21] MEDS ORDERED: SODIUM CHLORIDE 0.9% 1000ML 1,000 ML IV STA (19:22)
[2017-05-21] MEDS ORDERED: POTASSIUM CHLORIDE 10 MEQ TABCR PO STA (19:39)
[2017-05-21] MEDS: SODIUM CHLORIDE 0.9% 1000ML 1,000 ML IV SCH (20:46)
[2017-05-21] MEDS ORDERED: LISINOPRIL 10 MG TAB PO SCH ×2 (21:00)
[2017-05-22 02:50] VITALS: BP 154/77; PULSE 85; TEMP 36.8; O2SAT 95
[2017-05-22] MEDS: SODIUM CHLORIDE 0.9% 1000ML 1,000 ML IV SCH (03:07)
[2017-05-22] MEDS: CLINDAMYCIN IV 900 MG in DEXTROSE 5% 100ML 100 ML IV SCH (03:07)
[2017-05-22 05:06] LABS: HEMATOCRIT 37.5 % (37-47); HEMOGLOBIN 12.2 g/dL (12.0-16.0); MEAN CELL VOLUME 85.2 fL (80-100); MEAN CORPUSCULAR HEMOGLOBIN 27.7 pg (25-34); MEAN CORPUSCULAR HGB CONC 32.5 g/dl (32-36); MEAN PLATELET VOLUME 12.7 fL (7.4-10.4); PLATELET COUNT 240 K/uL (130-400); RED CELL DISTRIBUTION WIDTH SD 43.7 fL (36.4-46.3); WHITE BLOOD COUNT 22.36 K/uL (4.8-10.8)
[2017-05-22 05:43] LABS: CALCIUM 8.5 mg/dl (8.5-10.1); POTASSIUM 3.5 mmol/L (3.5-5.1)
[2017-05-22] MEDS ORDERED: HYDROCODONE/ACETAMOPHEN 5/325MG TAB PO PRN (06:00)
--- NOTE | 2017-05-22 06:09 | Surgery Progress Note ---
Surgery Progress Note Date of Service May 22, 2017. Subjective Post OP Day: 1 afeb, awake , alert very good urine output- saline bolus moderate drain output Objective Vital Signs: Date Time Temp Pulse Resp B/P (MAP) Pulse Ox O2 Delivery O2 Flow Rate FiO2 05/22/17 02:50 36.8 85 14 154/77 (102) 95 Room Air 05/21/17 23:23 Room Air 05/21/17 22:54 36.9 108 16 133/78 (96) 92 Room Air 05/21/17 19:00 36.2 116 18 154/81 (105) 93 Room Air 05/21/17 17:23 36.6 111 18 149/80 (103) 96 Room Air 05/21/17 16:15 37.1 97 16 160/84 (109) 95 Room Air 05/21/17 15:17 36.9 96 18 170/96 (120) 95 Room Air 05/21/17 15:10 Room Air 05/21/17 14:48 98 16 167/91 (116) 98 2.0 05/21/17 14:15 37.0 90 16 155/84 (107) 98 Nasal Cannula 2.0 05/21/17 14:15 98 Nasal Cannula 2.0 05/21/17 14:15 98 Nasal Cannula 2.0 05/21/17 14:00 86 16 170/88 98 Nasal Cannula 3 05/21/17 13:45 90 16 172/87 98 Nasal Cannula 3 05/21/17 13:40 85 16 171/91 98 Nasal Cannula 3 05/21/17 13:35 36.3 96 16 170/86 98 Nasal Cannula 3 05/21/17 13:30 96 16 158/83 98 Nasal Cannula 3 05/21/17 13:25 101 16 178/99 98 Nasal Cannula 3 05/21/17 13:15 90 16 172/92 99 Oxymask 3 05/21/17 13:13 104 174/89 05/21/17 13:05 104 16 174/89 99 Oxymask 5 05/21/17 12:55 36.2 101 16 168/88 99 Oxymask 10 05/21/17 08:50 36.9 97 18 204/94 (130) 98 Room Air General Appearance: no apparent distress Respiratory/Chest: no respiratory distress Incision(s): intact (dressing in place), drainage (expected) Laboratory Results: Results Past 24 Hours Test 05/21/17 17:17 05/22/17 04:53 Range/Units White Blood Count 18.80 22.36 4.8-10.8 K/uL Red Blood Count 4.76 4.40 4.2-5.4 M/uL Hemoglobin 13.3 12.2 12.0-16.0 g/dL Hematocrit 40.1 37.5 37-47 % Mean Corpuscular Volume 84.2 85.2 80-100 fL Mean Corpuscular Hemoglobin 27.9 27.7 25-34 pg Mean Corpuscular Hemoglobin Concent 33.2 32.5 32-36 g/dl RDW Standard Deviation 42.1 43.7 36.4-46.3 fL RDW Coefficient of Variation 13.7 14.0 11.5-14.5 % Platelet Count 218 240 130-400 K/uL Mean Platelet Volume 12.7 12.7 7.4-10.4 fL Sodium Level 138 140 136-145 mmol/L Potassium Level 3.3 3.5 3.5-5.1 mmol/L Chloride Level 102 105 98-107 mmol/L Carbon Dioxide Level 25 29 21-32 mmol/L Anion Gap 11.0 6.0 3-11 mmol/L Blood Urea Nitrogen 21 13 7-18 mg/dl Creatinine 1.28 1.00 0.60-1.20 mg/dl Est Creatinine Clear Calc Drug Dose 63.2 81.0 ml/min Estimated GFR () 58.9 79.4 Estimated GFR (Non- 50.8 68.5 BUN/Creatinine Ratio 16.0 12.9 10-20 Random Glucose 159 147 70-99 mg/dl Calcium Level 8.7 8.5 8.5-10.1 mg/dl Assessment & Plan 05/22/17- s/p bilateral mastectomy, drains in place- will d/c home with them- likely tomorrow. d/c IV fluid, encourage genny, check urine, add po pain med may need visiting nurse plan d/c tomorrow
[2017-05-22 06:53] VITALS: BP 126/74; PULSE 76; TEMP 36.7; O2SAT 95
--- NOTE | 2017-05-22 08:03 | Anesthesiology Progress Note ---
Anesthesia Post Op Note Date & Time May 22, 2017 at 08:03 Vital Signs Pain Intensity: 0.0 Vital Signs Past 12 Hours Date Time Temp Pulse Resp B/P (MAP) Pulse Ox O2 Delivery O2 Flow Rate FiO2 05/22/17 06:53 36.7 76 19 126/74 (91) 95 Room Air 05/22/17 02:50 36.8 85 14 154/77 (102) 95 Room Air 05/21/17 23:23 Room Air 05/21/17 22:54 36.9 108 16 133/78 (96) 92 Room Air Notes Mental Status: alert / awake / arousable, participated in evaluation Pt Amnestic to Procedure: Yes Nausea / Vomiting: adequately controlled Pain: adequately controlled Airway Patency, RR, SpO2: stable & adequate BP & HR: stable & adequate Hydration State: stable & adequate Anesthetic Complications: no major complications apparent
[2017-05-22] MEDS: CEFAZOLIN IV 1,000 MG in SYRINGE 0 ML IV SCH ×4 (08:09→23:40)
[2017-05-22] MEDS: CHECK SCOPOLAMINE PATCH PLACEMENT SCH ×3 (08:10→23:40)
[2017-05-22] MEDS: HYDROCODONE/ACETAMOPHEN 5/325MG TAB PO PRN ×4 (08:41→23:41)
[2017-05-22] MEDS ORDERED: LISINOPRIL/HCTZ 20/25MG TAB PO SCH ×2 (09:00→21:00)
--- NOTE | 2017-05-22 09:44 | Hospitalist Progress Note ---
Hospitalist Progress Note Date of Service May 22, 2017. (Hanny Vega ., MABEL) Subjective Pt evaluation today including: conversation w/ patient, physical exam, lab review, review of inpatient medication list Voiding: no voiding problems Patient sitting up in bed. Alert/oriented. Pain is well controlled. Eating and drinking OK. No BM/flatus postop. Ambulating w/out difficulty. Patient denies any fever, chills, sweats, lightheadedness, dizziness, vision changes, CP, palpitations, edema, SOB, wheezing, cough, abdominal pain, nausea, vomiting, diarrhea, urinary symptoms, melena, numbness/tingling, weakness, anxiety/depression, active bleeding, or new skin discoloration/changes. (Hanny Vega ., TOYC) Medications Current Inpatient Medications Medications (Trade) Dose Ordered Sig/Diane Route Start Time Stop Time Status Last Admin Dose Admin Miscellaneous (Remove Transderm-Scop Patch) 1 ea Q48H N/A 05/24/17 09:00 05/24/17 09:01 Miscellaneous Information (Check Scopolamine Patch Placement) 1 ea QS N/A 05/21/17 16:00 05/24/17 09:00 05/22/17 08:10 1 EA Morphine Sulfate (MoRPHine SULFATE INJ) 2 mg Q4H PRN IV 05/21/17 13:00 06/04/17 12:59 05/21/17 20:54 2 MG Morphine Sulfate (MoRPHine SULFATE INJ) 4 mg Q4H PRN IV 05/21/17 13:00 06/04/17 12:59 Promethazine HCl 25 mg/Sodium Chloride 51 ml @ 204 mls/hr Q6H PRN IV 05/21/17 13:00 06/20/17 12:59 Ondansetron HCl (Zofran Inj) 4 mg Q6H PRN IV 05/21/17 13:00 06/20/17 12:59 05/21/17 21:04 4 MG Promethazine HCl 12.5 mg/Sodium Chloride 50.5 ml @ 204 mls/hr Q6H PRN IV 05/21/17 15:00 06/20/17 14:59 Hydralazine HCl (HydrALAZINE INJ) 10 mg Q6H PRN IV. 1/8/18 17:15 06/20/17 17:14 Acetaminophen/ Hydrocodone Bitart ([place] 5/325 Tab) 1 tab Q4 PRN PO 05/22/17 06:00 06/05/17 05:59 05/22/17 08:41 1 TAB Acetaminophen/ Hydrocodone Bitart ([place] 5/325 Tab) 2 tab Q4 PRN PO 05/22/17 06:00 06/05/17 05:59 Cefazolin Sodium 1000 mg/Syringe 5 ml @ 1.667 mls/ min Q6 IV 05/22/17 06:00 06/01/17 05:59 05/22/17 08:09 1.667 MLS/MIN Heparin Sodium (Porcine) (Heparin Sq 5000 Unit/0.5ml) 5,000 unit Q12H SQ 05/22/17 08:15 06/21/17 08:14 UNV HCTZ/Lisinopril (Prinzide 20-25MG Tab) 1 tab DAILY PO 05/22/17 09:00 06/21/17 08:59 (Hanny Vega, MABEL) Objective Vital Signs Date Time Temp Pulse Resp B/P (MAP) Pulse Ox O2 Delivery O2 Flow Rate FiO2 05/22/17 07:55 Room Air 05/22/17 06:53 36.7 76 19 126/74 (91) 95 Room Air 05/22/17 02:50 36.8 85 14 154/77 (102) 95 Room Air 05/21/17 23:23 Room Air 05/21/17 22:54 36.9 108 16 133/78 (96) 92 Room Air 05/21/17 19:00 36.2 116 18 154/81 (105) 93 Room Air 05/21/17 17:23 36.6 111 18 149/80 (103) 96 Room Air 05/21/17 16:15 37.1 97 16 160/84 (109) 95 Room Air 05/21/17 15:17 36.9 96 18 170/96 (120) 95 Room Air 05/21/17 15:10 Room Air 05/21/17 14:48 98 16 167/91 (116) 98 2.0 05/21/17 14:15 37.0 90 16 155/84 (107) 98 Nasal Cannula 2.0 05/21/17 14:15 98 Nasal Cannula 2.0 05/21/17 14:15 98 Nasal Cannula 2.0 05/21/17 14:00 86 16 170/88 98 Nasal Cannula 3 05/21/17 13:45 90 16 172/87 98 Nasal Cannula 3 05/21/17 13:40 85 16 171/91 98 Nasal Cannula 3 05/21/17 13:35 36.3 96 16 170/86 98 Nasal Cannula 3 05/21/17 13:30 96 16 158/83 98 Nasal Cannula 3 05/21/17 13:25 101 16 178/99 98 Nasal Cannula 3 05/21/17 13:15 90 16 172/92 99 Oxymask 3 05/21/17 13:13 104 174/89 05/21/17 13:05 104 16 174/89 99 Oxymask 5 05/21/17 12:55 36.2 101 16 168/88 99 Oxymask 10 (Hanny Vega, PA-C) Physical Exam General Appearance: no apparent distress Eyes: normal inspection, PERRL ENT: hearing grossly normal Neck: supple Respiratory/Chest: lungs clear, no respiratory distress, no accessory muscle use, + pertinent finding (chest wrapped in LAZARA bandage; bilateral drains w/ minimal bloody output ) Cardiovascular: regular rate, rhythm Abdomen: normal bowel sounds, non tender, soft Extremities: no pedal edema, no calf tenderness Neurologic/Psychiatric: alert, normal mood/affect, oriented x 3 Skin: normal color, warm/dry, no rash (Hanny Vega, PA-C) Laboratory Results Last 24 Hours Test 05/21/17 17:17 05/22/17 04:53 05/22/17 09:10 White Blood Count 18.80 K/uL 22.36 K/uL Red Blood Count 4.76 M/uL 4.40 M/uL Hemoglobin 13.3 g/dL 12.2 g/dL Hematocrit 40.1 % 37.5 % Mean Corpuscular Volume 84.2 fL 85.2 fL Mean Corpuscular Hemoglobin 27.9 pg 27.7 pg Mean Corpuscular Hemoglobin Concent 33.2 g/dl 32.5 g/dl RDW Standard Deviation 42.1 fL 43.7 fL RDW Coefficient of Variation 13.7 % 14.0 % Platelet Count 218 K/uL 240 K/uL Mean Platelet Volume 12.7 fL 12.7 fL Sodium Level 138 mmol/L 140 mmol/L Potassium Level 3.3 mmol/L 3.5 mmol/L Chloride Level 102 mmol/L 105 mmol/L Carbon Dioxide Level 25 mmol/L 29 mmol/L Anion Gap 11.0 mmol/L 6.0 mmol/L Blood Urea Nitrogen 21 mg/dl 13 mg/dl Creatinine 1.28 mg/dl 1.00 mg/dl Est Creatinine Clear Calc Drug Dose 63.2 ml/min 81.0 ml/min Estimated GFR () 58.9 79.4 Estimated GFR (Non- 50.8 68.5 BUN/Creatinine Ratio 16.0 12.9 Random Glucose 159 mg/dl 147 mg/dl Calcium Level 8.7 mg/dl 8.5 mg/dl (Hanny Vega PA-C) Assessment and Plan 46 y/o female with a history of right breast invasive lobular carcinoma grade 1/ 3 and HTN who presents s/p bilateral mastectomy with bilateral sentinel lymph node biopsy with Dr. Washburn on 05/21 for medical management. s/p bilateral mastectomy and lymph node biopsy secondary to R invasive lobe carcinoma on 05/[address] Washburn: - Surgical management, pain management, and DVT prophylaxis as per primary team - Postop CBC and PRP -- Leukocytosis- chronic issues- ?increase due to postop response- no s/s of infection- IV Ancef as per surgery- follow CBC -- Notes of chronic leukocytosis (around 12) per outpatient records but no mention of cause- follows w/ [facility] -- UA negative -- H&H- STABLE Hypokalemia at 3.3- RESOLVED: Replaced w/ 30 mEq KCL supplement ZELDA, secondary to postop/dehydration- RESOLVED: Treated w/ IVF HTN- STABLE: - Resume Lisinopril/HCTZ - Hydralazine 10 mg IV q6h PRN sbp >180 DVT prophylaxis: Heparin SQ BID as per surgical team Code Status: LEVEL I, FULL Dispo: As per primary team- likely discharge tomorrow (Hanny Vega PA-C) Reviewed: Pt Seen/Exam by Me (Bailey Bo MD) History Physician Mud Temperer Supervision Note: I interviewed and examined the patient. Discussed with MARK Vega and agree with findings and plan as documented in the note. Any exceptions or clarifications are listed here: Pt doing well post-op, no further nausea from yesterday. Jeremiah po, passing flatus , no BM yet, making urine, pain controlled. Discussed h/o leukocytosis and reviewed outpt record in depth. Pt reports all dates with elevated WBC count in EMR were when she was or in labor, except 05/09/17 when it was 12k and she has been extremely stressed since her dx of Breast CA. SHe had flow cytometry in 2003 while that showed 5% blast cells, and Bcr-abl testing was pending at that time as per Oncology notes- -> pt was told she may have leukemia, but went on to have a second opinion where it was determined she did not. Since then, she has had no problems. Vitals reviewed NAD, AAOx3 RRR no mgr, LAZARA wrap in place around thorax CTAB no wcr Abd +BS soft NT ND Ext no edema, no calf tenderness 46 yo female w/ h/o HTN, confirmed right invasive lobular breast CA and suspicious left breast mass, here s/p bilateral mastectomy and sentinel LN bx. Frozen path neg on sentinel LNs, awaiting final path. Post-op recovery going well -likely dc to home tomorrow with home health, drains in place, pain control F/u with Rad Onc, Heme/Onc, Gen Surgery after dc -BP better controlled today Documented By: Bailey Bo (Bailey Bo MD)
[2017-05-22 09:56] LABS: PTT PATIENT 28.7 SECONDS (21.0-31.0)
--- NOTE | 2017-05-22 10:15 | Clinical Documentation Query ---
CLINICAL DOCUMENTATION QUERY Ms. HANNAH, In your clinical opinion is this patient being managed for: ( X ) Acute kidney failure ( ) Not Agree ( ) Other explanation of clinical findings (Please Explain) ( ) Unable to determine (Please Define) ( ) Need to Discuss The medical record reflects the following clinical findings, treatment, and risk factors. Clinical Indicators: 46 yo female presenting with R breast cancer for a bilateral mastectomy. Baseline Cr 0.76 which trended up to Cr 1.28 postoperatively. Has since trended down to Cr 1.0. Pt was hypertensive preoperatively and postoperatively. Treatment: 1 L NSS bolus, then 1L 150 cc/hr, monitor PRP's, IV hydralazine stat then prn, zestril po x 1 then resume prinzide Risk Factors:HTN Please clarify and document your clinical opinion in the progress notes and discharge summary. Terms such as "probable", "suspected", "likely", "questionable", "possible", or "still to be ruled out" are acceptable. IF IN AGREEMENT, YOU MUST DOCUMENT ABOVE DIAGNOSTIC STATEMENT IN DAILY PROGRESS NOTES AND DISCHARGE SUMMARY. This document is not part of the patient's record. Thank You, Elizabeth Bo RN [phone]
[2017-05-22] MEDS ORDERED: CEFAZOLIN IV 1,000 MG in DEXTROSE 5% 50ML 50 ML IV SCH (12:00)
[2017-05-22] MEDS: HEPARIN SOD 5000 UNIT/0.5 ML CARP SQ SCH ×2 (13:36→21:02)
[2017-05-22] MEDS ORDERED: HYDR-5688 PO (14:54)
[2017-05-22] MEDS ORDERED: CEPH500C2 PO (14:55)
--- NOTE | 2017-05-22 14:58 | Discharge Instructions ---
Discharge Instructions Date of Service May 22, 2017. Admission Reason for Admission: Right Breast Cancer W/Hosp Loc & Nm Inj Discharge Discharge Diagnosis / Problem: Rt breast cancer Discharge Goals Goal(s): Decrease discomfort, Improve function, Improve disease control Activity Recommendations Activity Limitations: as noted below Lifting Limitations: no more than 10 pounds Exercise/Sports Limitations: until after follow-up appointment May Resume Sexual Activity: when tolerated Shower/Bathe: tomorrow Driving or Machine Use: 7-10 days . Instructions / Follow-Up Instructions / Follow-Up SPECIAL CARE INSTRUCTIONS: * Cover incisions and change daily for comfort/drainage. Leave steri strips in place * Empty drain 2-3 times per day and record. * May use ibuprofen for pain as tolerated. * Expect some swelling and bruising. Call your doctor if: * Temperature above 101 degrees * Pain not relieved by pain medicine ordered * There is increased drainage or redness from any incision * You have any unanswered questions or concerns [phone]. FOLLOW UP VISIT: If not already scheduled, please call the office for a follow-up visit. for next week- Drain and wound check OFFICE PHONE NUMBER: Dr. Washburn Office Current Hospital Diet Patient's current hospital diet: Regular Diet Discharge Diet Recommended Diet: Regular Diet Procedures Procedures Performed: Bilateral Breast Mastectomy with Bilateral [place] Lymph Node Biopsy Pending Studies Studies pending at discharge: no Medical Emergencies . Who to Call and When: Medical Emergencies: If at any time you feel your situation is an emergency, please call 911 immediately. . Non-Emergent Contact Non-Emergency issues call your: Primary Care Provider, Surgeon . "Provider Documentation" section prepared by Ivan Washburn. . VTE Core Measure Inpt VTE Proph given/why not?: Unfractionated heparin SQ, SCD's
[2017-05-22 15:00] VITALS: BP 141/84; PULSE 76; TEMP 36.7; O2SAT 97
[2017-05-22 22:50] VITALS: BP 135/78; PULSE 81; TEMP 37; O2SAT 96
[2017-05-23 06:17] LABS: HEMATOCRIT 36.6 % (37-47); HEMOGLOBIN 11.9 g/dL (12.0-16.0); MEAN CELL VOLUME 86.1 fL (80-100); MEAN CORPUSCULAR HGB CONC 32.5 g/dl (32-36); MEAN PLATELET VOLUME 12.5 fL (7.4-10.4); PLATELET COUNT 190 K/uL (130-400); RED CELL DISTRIBUTION WIDTH CV 14.5 % (11.5-14.5); RED CELL DISTRIBUTION WIDTH SD 45.6 fL (36.4-46.3); WHITE BLOOD COUNT 13.35 K/uL (4.8-10.8)
[2017-05-23] MEDS ORDERED: CEPHALEXIN MONOHYDRATE 500 MG CAP PO SCH (06:30)
--- NOTE | 2017-05-23 06:56 | DISCHARGE SUMMARY ---
PRINCIPAL DIAGNOSIS: Right breast cancer. PROCEDURES: The patient underwent bilateral mastectomy. HISTORY OF PRESENT ILLNESS: The patient is a 46-year-old female with biopsy-proven right breast cancer and abnormal MRI, who has opted to undergo bilateral mastectomy. HOSPITAL COURSE: The patient was brought into the hospital on 05/21/2017, where she underwent bilateral mastectomy with drain placement. She has done very well in the hospital and is felt stable for discharge home today to be followed in the surgical clinic. She will have a visiting nurse for help with wound care and drain care. We will see her in the office within 1 week.
[2017-05-23 07:35] VITALS: BP 138/78; PULSE 70; TEMP 36.3; O2SAT 96
[2017-05-23 08:00] VITALS: O2SAT 96
[2017-05-23] MEDS: HYDROCODONE/ACETAMOPHEN 5/325MG TAB PO PRN (08:42)
[2017-05-23] MEDS: CHECK SCOPOLAMINE PATCH PLACEMENT SCH (08:43)
[2017-05-23 09:37] VITALS: BP 138/78; PULSE 70; TEMP 36.3; O2SAT 96
== END 2017-05-23 10:33 | disposition home health service (06) | DRG 580 ==
LOC: C.ACU 07:47 → C.MSW 12:57 → ENRESERV 13:41
PROVIDERS: ADMIT Surgery; ATTEND Surgery
PROC: 07B50ZX Excision of Right Axillary Lymphatic, Open Approach, Diagnostic (ICD-10-PCS; principal; 2017-05-21 10:00)
PROC: 07B60ZX Excision of Left Axillary Lymphatic, Open Approach, Diagnostic (ICD-10-PCS; principal; 2017-05-21 10:00)
PROC: 0HTV0ZZ Resection of Bilateral Breast, Open Approach (ICD-10-PCS; principal; 2017-05-21 10:00)
DX: C50.911 Malignant neoplasm of unspecified site of right female breast (principal); N17.9 Acute kidney failure, unspecified; I10 Essential (primary) hypertension; E87.6 Hypokalemia; Z88.2 Allergy status to sulfonamides; Z88.0 Allergy status to penicillin; Z80.3 Family history of malignant neoplasm of breast; E86.0 Dehydration

== ENCOUNTER → 2017-06-12 | Outpatient (CLI) | payer BC ==
[~2017-06-12] VITALS: Ht 158.8 cm; Wt 99.6 kg
[~2017-06-12] MED LIST changes: +CEFAZOLIN 3000MG IV PUSH 22.5 ML IV SCH; -CLINDAMYCIN IV 900 MG in DEXTROSE 5% 50ML 44 ML IV SCH; +HYDR-5688 PO; -LISI-461 PO; +LISI20TA55 PO
[2017-06-12 10:09] VITALS: Ht 158.8 cm; Wt 99.6 kg
--- NOTE | 2017-06-12 10:30 | PAT Medication Instructions ---
Service Date Jun 12, 2017. Current Home Medication List Hydrocodone/Acetaminophen 5MG/325MG ([place] 5MG/325MG), 1 TABLET PO HS PRN for n Lisinopril/Hctz (Prinzide 20-25MG), 1 TAB PO QAM Medication Instructions For Your Scheduled Surgery - Hold the following medications the morning of surgery: Lisinopril/Hctz (Pr[place] 20-25MG), 1 TAB PO QAM - Take the following medications the morning of surgery with a sip of water: Hydrocodone/Acetaminophen 5MG/325MG ([place] 5MG/325MG), 1 TABLET PO HS PRN (if needed, can be taken up to four hours before surgery) - Take the following medications as scheduled the night before surgery: Hydrocodone/Acetaminophen 5MG/325MG ([place] 5MG/325MG), 1 TABLET PO HS PRN (if needed) If you have any questions please call us at [phone] or [phone] or [phone]
[2017-06-12 11:09] LABS: BASO % 0.2 %; BASO ABS # 0.03 K/uL (0-0.2); EOS % 1.4 %; EOS ABS # 0.19 K/uL (0-0.5); HEMATOCRIT 37.9 % (37-47); HEMOGLOBIN 12.7 g/dL (12.0-16.0); IG# 0.06 K/uL (0.00-0.02); LYMPH % 20.2 %; LYMPH ABS # 2.67 K/uL (1.2-3.4); MEAN CELL VOLUME 84.8 fL (80-100); MEAN CORPUSCULAR HEMOGLOBIN 28.4 pg (25-34); MEAN CORPUSCULAR HGB CONC 33.5 g/dl (32-36); MEAN PLATELET VOLUME 12.3 fL (7.4-10.4); MONO % 4.5 %; NEUT % 73.2 %; NEUT ABS # 9.66 K/uL (1.4-6.5); PLATELET COUNT 263 K/uL (130-400); RED CELL DISTRIBUTION WIDTH CV 14.1 % (11.5-14.5); RED CELL DISTRIBUTION WIDTH SD 43.3 fL (36.4-46.3); WHITE BLOOD COUNT 13.21 K/uL (4.8-10.8)
== END | disposition home or self-care (01) ==
LOC: C.LAB 08:00 → EDSTATUS 06-29 07:30
PROVIDERS: ATTEND Obstetrics & Gynecology
DX: Z01.812 Encounter for preprocedural laboratory examination (principal)

== ENCOUNTER → 2017-12-10 | Outpatient (CLI) | payer BC ==
[~2017-12-10] MED LIST changes: +ANAS1TAB7 PO; -CEFAZOLIN 3000MG IV PUSH 22.5 ML IV SCH; +GOSE3.6I INJ; +HYDR12.56 PO; -LACTATED RINGER'S 1000ML 1,000 ML IV SCH; +OXYC-57 PO
== END | disposition home or self-care (01) ==
LOC: C.PAPS 14:16
PROVIDERS: ATTEND Obstetrics & Gynecology
DX: C50.919 Malignant neoplasm of unspecified site of unspecified female breast (principal)

== ENCOUNTER → 2017-12-13 | Outpatient (CLI) | payer BC | END | disposition home or self-care (01) | LOC: C.PATHSPEC 15:06 | PROVIDERS: ATTEND Obstetrics & Gynecology | DX: D25.9 Leiomyoma of uterus, unspecified (principal) ==

== ENCOUNTER 2017-12-17 06:11 | Observation (INO) | payer BC ==
[2017-12-03 15:18] VITALS: BMI 38.0
--- NOTE | 2017-12-12 13:17 | HISTORY & PHYSICAL EXAMINATION ---
DATE OF ADMISSION: 12/13/2017 HISTORY AND PHYSICAL PRINCIPAL DIAGNOSIS: History of right infiltrating lobular breast cancer. Estrogen receptors are positive. PROCEDURE: A robotic total laparoscopic hysterectomy and right salpingo-oophorectomy. HISTORY OF PRESENT ILLNESS: Patient is a 47-year-old 4, para 3-0-1-3 white female who was diagnosed with lobular infiltrating breast cancer of the right breast in May of this year. She underwent bilateral mastectomies as a result, estrogen receptors are positive, there were microscopic cells of the breast cancer in her node but only a few cells present. After several consultations patient now wishes to proceed to have her right ovarian tube removed as well as her uterus because she is going to have to be on anastrozole for the next 10 years. Patient has not experienced any bleeding since starting the anastrozole. She has had some occasional hot flashes, but they have been tolerable. PAST MEDICAL HISTORY: Significant for migraine headaches which have been well controlled in the recent past, history of stage III endometriosis diagnosed at age 23. PAST SURGICAL HISTORY: She has had her wisdom teeth removed. Laparoscopies x2 in 1993 with a diagnosis of endometriosis was made. She underwent exploratory laparotomy in 1994 for left salpingo-oophorectomy because of persistent endometrioma and pelvic adhesions. MEDICATIONS: Anastrozole 1 mg daily, hydrochlorothiazide 12.5 mg daily, and Zoladex 3.6 mg subQ. ALLERGIES: PENICILLIN WHICH CAUSES A RASH, SULFA MEDICATIONS CAUSED JOINT SWELLING AND STIFFNESS. TREATMENT PLANT MECHANIC HISTORY: No history of PID, VD or herpes. She did have mild cervical dysplasia 20 years ago. Pap smears since then have been normal. She has had 3 vaginal deliveries, 2001, 2003 and 2007, all without complications and did not require fertility medications. She had 1 spontaneous miscarriage in 2000. SOCIAL HISTORY: She does not smoke or drink. FAMILY HISTORY: Noncontributory. PHYSICAL EXAMINATION: VITAL SIGNS: Blood pressure is 126/80. GENERAL: She is a well-nourished white female in no apparent distress. LUNGS: Clear to auscultation. HEART: Regular rate and rhythm. No murmurs or gallops. BREASTS: Breast exam shows evidence of bilateral mastectomy with well-healed incisions bilaterally. There are no masses palpable in the remaining adipose tissue on the chest wall. ABDOMEN: Soft and nontender. There is no hepatosplenomegaly or masses palpable. Well-healed periumbilical scar as well as a low transverse incision. PELVIC: External genitalia within normal limits. Vagina appears to be still well estrogenized. Cervix is without lesions. Bimanual exam, uterus is top normal size, mobile and nontender. There are no adnexal masses or tenderness present. EXTREMITIES: Without cyanosis or edema. ASSESSMENT: A 47-year-old multiparous female recently diagnosed with estrogen receptor positive lobular breast cancer, now presenting for right salpingo-oophorectomy and total laparoscopic hysterectomy by robotics because of ongoing risks because of the estrogen receptor nature of her breast cancer. She will be seeing Dr. Leeanne Caldwell, who will be performing the surgery on 12/13/2017 for further evaluation. The procedure was discussed at length as well as its risks with the patient at this visit. This will also be further expanded upon when she sees Dr. Caldwell. Please see the orders for further directions.
[2017-12-13 13:24] VITALS: BMI 39.0
--- NOTE | 2017-12-13 13:45 | PAT Medication Instructions ---
Service Date Dec 13, 2017. Current Home Medication List Anastrozole (Anastrozole), 1 TAB PO QPM Goserelin Acetate (Zoladex), 1 MG INJ MONTHLY Hydrochlorothiazide (Hctz), 12.5 MG PO QPM Hydrocodone/Acetaminophen 5MG/325MG ([place] 5MG/325MG), 1 TABLET PO HS PRN for n Medication Instructions For Your Scheduled Surgery - Take the following medications as scheduled the night before surgery: Anastrozole (Anastrozole), 1 TAB PO QPM Hydrochlorothiazide (Hctz), 12.5 MG PO QPM Hydrocodone/Acetaminophen 5MG/325MG ([place] 5MG/325MG), 1 TABLET PO HS PRN (if needed) *NOTHING TO EAT OR DRINK AFTER MIDNIGHT* If you have any questions please call us at [phone] or [phone] or [phone]
[2017-12-13 14:36] LABS: BASO % 0.1 %; BASO ABS # 0.02 K/uL (0-0.2); EOS % 1.3 %; EOS ABS # 0.18 K/uL (0-0.5); HEMATOCRIT 41.6 % (37-47); HEMOGLOBIN 13.6 g/dL (12.0-16.0); LYMPH % 20.4 %; LYMPH ABS # 2.77 K/uL (1.2-3.4); MEAN CELL VOLUME 82.9 fL (80-100); MEAN CORPUSCULAR HEMOGLOBIN 27.1 pg (25-34); MEAN CORPUSCULAR HGB CONC 32.7 g/dl (32-36); MEAN PLATELET VOLUME 12.5 fL (7.4-10.4); MONO ABS # 0.68 K/uL (0.11-0.59); NEUT % 72.5 %; NEUT ABS # 9.81 K/uL (1.4-6.5); PLATELET COUNT 235 K/uL (130-400); RED CELL DISTRIBUTION WIDTH CV 13.6 % (11.5-14.5); RED CELL DISTRIBUTION WIDTH SD 40.7 fL (36.4-46.3); WHITE BLOOD COUNT 13.56 K/uL (4.8-10.8)
[2017-12-13 15:59] LABS: CREATININE 0.82 mg/dl (0.60-1.20); POTASSIUM 3.1 mmol/L (3.5-5.1)
[~2017-12-17] VITALS: Ht 160 cm; Wt 102.0 kg
[2017-12-17] VITALS (8 sets, daily range): BP systolic 131–175; BP diastolic 72–98; PULSE 62–92; TEMP 36.4–37; O2SAT 95–98; Ht 160 cm; Wt 102.0 kg
[~2017-12-17 06:11] MED LIST changes: +CEFAZOLIN 3000MG IV PUSH 22.5 ML IV SCH; +LACTATED RINGER'S 1000ML 1,000 ML IV SCH; -LISI20TA55 PO; -OXYC-57 PO
[2017-12-17] MEDS ORDERED: PROPOFOL IV EMULSION 10 MG/ML 20 ML VIAL ONE (06:56)
[2017-12-17] MEDS ORDERED: FENTANYL CITRATE INJ 50 MCG/1 ML 2 ML VIAL ONE ×3 (06:56→09:51)
[2017-12-17] MEDS ORDERED: ROCURONIUM BROMIDE 10 MG/ML 5 ML VIAL ONE ×4 (06:56→10:27)
[2017-12-17] MEDS ORDERED: MIDAZOLAM HCL 1 MG/ML 2ML VIAL ONE (06:56)
[2017-12-17] MEDS ORDERED: LIDOCAINE HCL 2% 2 ML VIAL (20MG/ML) ONE (06:56)
[2017-12-17] MEDS ORDERED: DEXAMETHASONE SOD INJ 4 MG/ML VIAL ONE (07:03)
[2017-12-17] MEDS ORDERED: ONDANSETRON INJ 2 MG/ML 2 ML VIAL ONE ×2 (07:03→09:55)
[2017-12-17] MEDS ORDERED: BUPIVACAINE 0.5 % 5 MG/1 ML PF 10ML VIAL ONE (07:06)
[2017-12-17] MEDS ORDERED: HYDROmorphone INJ 1 MG/ML SYR IV PRN (08:15)
[2017-12-17] MEDS ORDERED: FENTANYL CITRATE INJ 50 MCG/1 ML 2 ML VIAL IV PRN (08:15)
[2017-12-17] MEDS ORDERED: ATROPINE SULFATE 0.1 MG/ML 5ML SYR IV PRN (08:15)
[2017-12-17] MEDS ORDERED: LABETALOL HCL IV 5 MG/ML 20ML IV PRN (08:15)
[2017-12-17] MEDS ORDERED: EpHEDrine SULFATE INJ 50 MG/ML AMP IV PRN (08:15)
[2017-12-17] MEDS ORDERED: ONDANSETRON INJ 2 MG/ML 2 ML VIAL IV PRN ×2 (08:15→10:45)
[2017-12-17] MEDS ORDERED: MEPERIDINE HCL 25 MG/ML CARP IV PRN (08:15)
[2017-12-17] MEDS ORDERED: MoRPHine SULFATE PF 1 MG/ML 10 ML AMP/VIAL ONE (09:51)
[2017-12-17] MEDS ORDERED: METHYLENE BLUE 0.5% 10 ML VIAL ONE (09:55)
[2017-12-17] MEDS ORDERED: TISSEEL FIBRIN SEALANT 4ML TOP ONE (10:24)
[2017-12-17] MEDS ORDERED: SODIUM CHLORIDE 0.9% INJ 10 ML VIAL ONE (10:26)
[2017-12-17] MEDS ORDERED: KETOROLAC TROMETHAMINE 30 MG/ML VIAL ONE (10:28)
[2017-12-17] MEDS ORDERED: GLYCOPYRROLATE INJ 0.2 MG/ML VIAL ONE (10:28)
[2017-12-17] MEDS ORDERED: NEOSTIGMINE METHYLSULFATE 5 MG/5 ML SYR ONE (10:28)
--- NOTE | 2017-12-17 10:42 | [facility] Post Operative Brief Note ---
Immediate Operative Summary Operative Date Dec 17, 2017. Pre-Operative Diagnosis History of right infiltrating lobular breast cancer, estrogen receptor positive, pelvic pressure, uterine fibroid Post-Operative Diagnosis Same + adhesive disease Procedure(s) Performed Robotic assisted total laparoscopic hysterectomy with right salpingo-oopherectomy and cystoscopy, lysis of adhesions Surgeon Dr. Leeanne Caldwell, DO Group Billing Coordinator Surgeon(s) Dr. Serenity Fraser Estimated Blood Loss 25ml Findings Consistent with Post-Op Diagnosis Specimens A. Uterus, cervix, and right fallopian tube and ovary Drains gibson clear yellow Anesthesia Type General Complication(s) none Disposition Accompanied Pt To Recover: no Disposition: Recovery Room / PACU
[2017-12-17] MEDS ORDERED: IBUPROFEN 600 MG TAB PO PRN (10:45)
[2017-12-17] MEDS ORDERED: OXYC-57 PO (10:45)
[2017-12-17] MEDS ORDERED: MAGNESIUM HYDROXIDE SUSP 30 ML UDC PO PRN (10:45)
[2017-12-17] MEDS ORDERED: KETOROLAC TROMETHAMINE 30 MG/ML VIAL IV. PRN (10:45)
[2017-12-17] MEDS ORDERED: BISACODYL 10 MG SUPP PR PRN (10:45)
[2017-12-17] MEDS ORDERED: SIMETHICONE 80 MG CHEW PO PRN (10:45)
[2017-12-17] MEDS ORDERED: OXYCODONE/ACETAMINOPHEN 5-325 TAB PO PRN ×2 (10:45)
[2017-12-17] MEDS ORDERED: PROMETHAZINE HCL INJ 12.5 MG in SODIUM CHLORIDE 0.9% 50ML 50 ML IV PRN (10:45)
--- NOTE | 2017-12-17 10:46 | Discharge Instructions ---
Discharge Instructions Date of Service Dec 17, 2017. Admission Reason for Admission: Lobular Carcinoma Of Right Breast, hysterectomy Discharge Discharge Diagnosis / Problem: Same Discharge Goals Goal(s): Routine recovery after surgery Activity Recommendations Activity Limitations: per Instructions/Follow-up section . Instructions / Follow-Up Instructions / Follow-Up ACTIVITY RECOMMENDATIONS: Activity: * During the first week at home, your activity should be similar to that done at the hospital prior to discharge. Your primary activity is in-house walking interspersed with rest periods. Preparing lunch for yourself is acceptable. You may go up and down stairs. Try to stay up progressively longer periods of time to help regain your strength more quickly. * During the second week at home, activities should include some meal preparation, walking to strengthen abdominal muscles and riding in a car. You may drive a car and make brief shopping trips at the end of the second week at home. * Lifting should not exceed 15-20 pounds during the first month after surgery. * Sexual intercourse can usually be resumed about 6 weeks after surgery depending on findings at your post-operative examinations. Bathing: * Showers or baths are permissible. Sitting in four to six inches of hot water (sitz bath) is often comforting after vaginal surgery and is permitted at any time. A sitz bath at bedtime can also assist in a better night's sleep. SPECIAL CARE INSTRUCTIONS: The major discomforts related to surgery have now passed and progressive improvement will occur. The tight uncomfortable feeling in the abdominal, pelvic and back area will gradually fade away. Fatigue may take the longest to disappear; your energy level may take several weeks to return to normal. At times you may become frustrated or impatient over not feeling as well or doing as much as you'd like , but this is a normal reaction to surgery and will pass with time. Vaginal Discharge: * Odorous, blood-tinged or brownish discharge may be present for one to three weeks after surgery. * Pads should be used and not tampons. * Stitches may be passed vaginally. * Bleeding may be somewhat increased approximately two weeks after surgery, which is related to the stitches dissolving. * If bleeding becomes free flowing, notify our office at . Bowel Care: * Constipation after surgery is very common. Foods that promote bowel activity (bran, fruit, prune juice) should be included in your diet. * A capsule, DIALOSE-PLUS, can be purchased without a prescription and can be taken daily (one or two capsules) to assist in promoting bowel activity. * If you have had vaginal surgery involving your rectum, we will discuss this when discharged from the hospital. Catheter or "CYSTO-CATH": * Approximately 80% of "bladder repair" patients will require a catheter at home until the swelling recedes. * Some patients require days to weeks before adequate bladder emptying will resume. * In general, after each time you urinate, un-clamp the catheter again. Measure the amount in the bag. When this is consistently below 100cc, call the office to make an appointment to have the catheter removed. Temperature: * Any fever above 100.4 degrees F should be reported to our office at . FOLLOW-UP: Post-Operative Appointments: * Individual instructions will have been given about the timing of your first examination, but this is usually at the end of the second week home. * You will need to call the office at soon after discharge to make the appointment for your post-op check-up if it has not already been scheduled. * Additional information regarding activity, sexual intercourse and when to return to work will be given at this appointment. WE WISH YOU A SPEEDY RECOVERY! Current Hospital Diet Patient's current hospital diet: Discharge Diet Recommended Diet: Regular Diet Procedures Procedures Performed: Robotic assisted total laparoscopic hysterectomy with right salpingo-oopherectomy and cystoscopy, lysis of adhesions Pending Studies Studies pending at discharge: yes List of pending studies: path Medical Emergencies . Who to Call and When: Medical Emergencies: If at any time you feel your situation is an emergency, please call 911 immediately. . Non-Emergent Contact Non-Emergency issues call your: Primary Care Provider, Packaging Technician . . "Provider Documentation" section prepared by Leeanne Caldwell. .
--- NOTE | 2017-12-17 12:43 | Anesthesiology Progress Note ---
Anesthesia Post Op Note Date & Time Dec 17, 2017 at 12:42 Vital Signs Pain Intensity: 5.0 Vital Signs Past 12 Hours Date Time Temp Pulse Resp B/P (MAP) Pulse Ox O2 Delivery O2 Flow Rate FiO2 12/17/17 11:55 96 Nasal Cannula 1.0 12/17/17 11:55 96 Nasal Cannula 1.0 12/17/17 11:55 36.8 79 18 143/78 (99) 96 Nasal Cannula 1.0 12/17/17 11:41 158/68 12/17/17 11:39 84 18 12/17/17 11:39 88 18 96 12/17/17 11:36 152/82 12/17/17 11:34 87 12 97 12/17/17 11:34 87 12 12/17/17 11:33 151/78 12/17/17 11:31 159/82 12/17/17 11:29 96 16 98 12/17/17 11:29 95 16 12/17/17 11:27 36.4 90 16 156/85 (99) 97 Nasal Cannula 2 12/17/17 11:26 156/85 12/17/17 11:24 90 21 12/17/17 11:24 89 21 94 12/17/17 11:21 160/84 12/17/17 11:19 99 15 94 12/17/17 11:19 98 15 12/17/17 11:18 97 20 12/17/17 11:18 97 20 96 12/17/17 11:16 156/74 12/17/17 11:13 96 20 97 12/17/17 11:13 96 20 12/17/17 11:12 94 20 12/17/17 11:12 94 20 12/17/17 11:12 94 20 97 12/17/17 11:12 94 20 97 12/17/17 11:11 155/82 12/17/17 11:11 155/82 12/17/17 11:10 156/83 12/17/17 11:10 156/83 12/17/17 10:57 36.1 101 20 148/76 (97) 99 Oxymask 10 12/17/17 06:50 37.0 86 20 175/98 (123) 96 Room Air Notes Mental Status: alert / awake / arousable, participated in evaluation Pt Amnestic to Procedure: Yes Nausea / Vomiting: adequately controlled Pain: adequately controlled Airway Patency, RR, SpO2: stable & adequate BP & HR: stable & adequate Hydration State: stable & adequate Anesthetic Complications: no major complications apparent
[2017-12-17] MEDS ORDERED: IV FLUIDS COMPLETED PRN (14:30)
--- NOTE | 2017-12-17 18:34 | [facility] Operative Report ---
Operative Report Operative Date Dec 17, 2017. Pre-Operative Diagnosis History of right infiltrating lobular breast cancer, estrogen receptor positive, pelvic pressure, uterine fibroid Post-Operative Diagnosis Same + adhesive disease Procedure(s) Performed Robotic assisted total laparoscopic hysterectomy with right salpingo-oopherectomy and cystoscopy, lysis of adhesions Surgeon Dr. Leeanne Caldwell, DO General Laborer Surgeon(s) Dr. Serenity Fraser Estimated Blood Loss 25ml Specimens A. Uterus, cervix, and right fallopian tube and ovary Drains gibson clear yellow Anesthesia Type General Complication(s) none Disposition no Recovery Room / PACU Indications 47-year-old with recent diagnosis of lobular infiltrating breast cancer with positive estrogen receptors in May 2017. She is status post bilateral mastectomy with plans for anastrozole for the next 10 years. She has a history of left salpingo-oophorectomy. She, after discussion with her oncologist, is requesting removal of her right fallopian tube and ovary and her uterus. She additionally has a large uterine fibroid in the posterior aspect of her uterus, has reported pelvic pressure. Description of Procedure The patient was seen in the preoperative holding area, where risks benefits and alternatives to surgery reviewed. She elected to proceed with the case. She had previously signed informed consent in the office under no duress, however since this was not immediately available in her hospital chart, we signed a new consent. All questions were answered. She was taken to the operating room, where general anesthesia was administered. She received Ancef preoperatively. She was then prepared and draped in the usual sterile fashion in the dorsal lithotomy position. Timeout was confirmed. A Gibson catheter was placed in the bladder. A weighted speculum was placed in the vagina, the cervix was visualized in its anterior lip was grasped with a single-tooth tenaculum. Stay sutures were placed at 3 and 9:00 on the cervix, and the uterine manipulator was placed. Gloves and gown were changed, attention was then turned to the abdomen. Using the open Cummings technique, a supraumbilical incision was made and the Cummings trocar was placed. The camera was inserted, intra-abdominal placement was noted, and CO2 gas was used to insufflate the abdomen. Bilateral trochars were then placed with direct visualization. A notation was made of multiple pelvic adhesions, most notably adhesions between colon and left posterior broad ligament. The robot was docked, instruments were inserted. First, normal anatomy was restored by performing lysis of adhesions. Particularly, adhesive disease between the colon and the uterus/broad ligament. This was carefully dissected, which freed the bowel to be gently pushed away from the surgical site. Bilateral ureters were visualized directly, peristalsing. Next, the right infundibulopelvic ligament was identified, coagulated and transected. The right round ligament was transected, and the anterior leaf of the broad ligament was dissected from the anterior aspect of the uterus. In a similar fashion, the left round ligament was transected and the anterior leaf was further dissected. Bilateral sides of the uterus were skeletonized, and the bilateral uterine vessels were coagulated and transected. A circumferential incision was made at the level of the vaginal manipulator cuff to transect the uterus from the vaginal cuff. The uterus was then delivered vaginally. The vaginal cuff was reapproximated using a running stitch of V-lock suture. Excellent hemostasis was observed. Methylene blue was given. The cystoscopy was then performed, with direct visualization of the bladder, dome, bilateral ureters with positive uro-jets. Attention was then turned to the pelvis, where Tisseel coagulant was used along all raw edges. Excellent hemostasis was observed. The robot was undocked, all trochars were removed, and the supraumbilical fascia was reapproximated using 0 Vicryl. All incisions were reapproximated using 4-0 Vicryl in subcuticular stitches, lidocaine was injected for postoperative pain control, and Dermabond glue was used to approximate skin. The patient tolerated the procedure well, all sponge instrument and needle counts were correct at the conclusion of the case 2. I attest to the content of the Intraoperative Record and any orders documented therein. Any exceptions are noted below.
== END 2017-12-17 18:16 | disposition home or self-care (01) ==
LOC: C.ACU 06:11 → C.MS4N 10:44 → ENRESERV 11:22
PROVIDERS: ADMIT Obstetrics & Gynecology; ATTEND Obstetrics & Gynecology
DX: D25.9 Leiomyoma of uterus, unspecified (principal); R10.2 Pelvic and perineal pain; Z85.3 Personal history of malignant neoplasm of breast; E66.9 Obesity, unspecified; I10 Essential (primary) hypertension; Z88.0 Allergy status to penicillin; Z88.2 Allergy status to sulfonamides